=== PATIENT | female | born 1970 | race Hispanic/Latino ===

== ENCOUNTER 2024-01-08 08:06 | Day surgery (SDC) | payer OTHER ==
[2024-01-04 10:40] VITALS: BMI 39.0
[2024-01-08] MEDS ORDERED: CeleCOXIB 100 MG CAP ONE (08:39)
[2024-01-08] MEDS ORDERED: Gabapentin 300 MG CAP ONE (08:40)
[2024-01-08] MEDS ORDERED: Famotidine/PF 20 mg/2ml Vial ONE (08:40)
[2024-01-08] MEDS ORDERED: Scopolamine 1 mg/72 hour Patch ONE (08:40)
[2024-01-08] MEDS ORDERED: Ketorolac Tromethamine 30 MG (1 mL) VIAL ONE (08:41)
[2024-01-08] MEDS ORDERED: Rocuronium Bromide 10 MG/ML (10ML VIAL) ONE (08:41)
[2024-01-08] MEDS ORDERED: Lidocaine 1% PF 5 ML VIAL ONE (08:41)
[2024-01-08] MEDS ORDERED: Ondansetron PF 4 MG/2 ML Vial ONE (08:41)
[2024-01-08] MEDS ORDERED: Dexamethasone 20 MG/5 ML VIAL ONE (08:41)
[2024-01-08] MEDS ORDERED: Fentanyl 250 MCG/5 ML VIAL ONE (08:42)
[2024-01-08] MEDS ORDERED: SUGAMMADEX SODIUM 200 MG/2 ML VIAL ONE (08:42)
[2024-01-08] MEDS ORDERED: PROPOFOL 20 ML ONE (08:42)
[2024-01-08] MEDS ORDERED: Midazolam HCl 2 mg/2 ml Vial ONE ×2 (08:42→10:03)
[2024-01-08] MEDS ORDERED: Bupivacaine HCl 0.5%/Epinephrine 1:200,000/PF 30 ml Vial ONE (09:35)
[2024-01-08] MEDS ORDERED: CEFAZOLIN 2 GM VIAL ONE (09:35)
[2024-01-08] MEDS ORDERED: ePHEDrine Sulfate 50 MG/10 ML VIAL ONE (10:28)
[2024-01-08] MEDS ORDERED: Vasopressin 20 UNITS/ML VIAL ONE (10:31)
[2024-01-08] MEDS ORDERED: fentaNYL 50 mcg/mL 1 mL Vial ONE ×2 (13:12→13:29)
[2024-01-08] MEDS ORDERED: HYDROcodone/Acetaminophen 5/325 mg Tablet ONE (14:08)
== END 2024-01-08 16:37 | disposition home or self-care (01) ==
LOC: CSHSDC 08:06
PROVIDERS: ATTEND Obstetrics & Gynecology
DX: D25.9 Leiomyoma of uterus, unspecified (principal); D28.2 Benign neoplasm of uterine tubes and ligaments; I10 Essential (primary) hypertension; N70.11 Chronic salpingitis; N72 Inflammatory disease of cervix uteri; N85.01 Benign endometrial hyperplasia; E78.5 Hyperlipidemia, unspecified; R73.03 Prediabetes; Z79.84 Long term (current) use of oral hypoglycemic drugs; Z79.82 Long term (current) use of aspirin; Z79.899 Other long term (current) drug therapy
CPT/HCPCS: 88305; 88307; C9250; J1100; J1885; J2250; J2405; J2704; J3010; J3490